=== PATIENT | male | born 1990 | race African-American/Black ===

== ENCOUNTER 2017-07-15 17:26 | Emergency (ER) | payer SELFPAY ==
[~2017-07-15] VITALS: Ht 195.6 cm; Wt 82.0 kg
[2017-07-15] MEDS ORDERED: SODIUM CHLORIDE 0.9% 1,000 ML IV ONE (18:08)
[2017-07-15] MEDS ORDERED: KETOROLAC 30MG/ML VIAL IV STA (18:08)
[2017-07-15] MEDS ORDERED: ONDANSETRON HCL 4MG/2ML VIAL IV STA (18:08)
[2017-07-15] MEDS ORDERED: FAMOTIDINE 20MG/2ML VIAL IV STA (18:08)
[2017-07-15] MEDS ORDERED: ACETAMINOPHEN 500MG TABLET PO ONE (18:15)
[2017-07-15 18:44] LABS: BASOPHILS % 0.4 % (0.0-2.0); HEMATOCRIT. 43.7 % (42.0-52.0); HEMOGLOBIN. 14.9 g/dL (14.0-18.0); LYMPHOCYTES % 15.5 % (20.0-50.0); MEAN CORPUSCULAR HEMOGLOBIN 28.3 pg (28.0-32.0); MEAN CORPUSCULAR VOLUME 82.8 fL (80.0-94.0); MEAN PLATELET VOLUME 8.6 fl (7.4-10.4); NEUTROPHILS % 73.1 % (40.0-76.0); PLATELET 139 x1000/uL (130-400); RED BLOOD CELL COUNT 5.27 mill/uL (4.7-6.1); RED CELL DISTRIBUTION WIDTH 12.8 % (11.6-14.6)
[2017-07-15 18:47] LABS: CHLORIDE 98 mEq/L (98-107); INR 1.3; PROTHROMBIN TIME 13.1 sec (9.4-11.6)
[2017-07-15 18:53] LABS: CARBON DIOXIDE 29 mEq/L (21-32)
[2017-07-15 18:53] LABS: CLARITY URINE CLEAR (CLEAR); COLOR URINE DARK YELLOW (YELLOW); KETONES URINE 2+ (NEGATIVE); LEUKOCYTE ESTERASE URINE 2+ (NEGATIVE); NITRITE URINE NEGATIVE (NEGATIVE); OCCULT BLOOD URINE NEGATIVE (NEGATIVE); PH URINE >=9.0 (4.5-8.0); PROTEIN URINE 1+ (NEGATIVE); SPECIFIC GRAVITY URINE 1.029 (1.005-1.030)
[2017-07-15 21:00] LABS: *AMPHETAMINES SCREEN URINE NEGATIVE (NEGATIVE); *BARBITURATES SCREEN URINE NEGATIVE (NEGATIVE); *BENZODIAZEPINES SCREEN URINE NEGATIVE (NEGATIVE); *COCAINE SCREEN URINE NEGATIVE (NEGATIVE); CANNABINOID URINE SCREEN PRESUMTIVE POSITIVE (NEGATIVE); METHADONE URINE SCREEN NEGATIVE (NEGATIVE); OPIATES URINE SCREEN NEGATIVE (NEGATIVE); PHENCYCLIDINE URINE SCREEN NEGATIVE (NEGATIVE)
[2017-07-15] MEDS ORDERED: AZITHROMYCIN 500 MG TABLET PO ONE (21:00)
[2017-07-15] MEDS ORDERED: CEFTRIAXONE SODIUM 250 MG/VIAL IM ONE (21:00)
[2017-07-15] MEDS ORDERED: LIDOCAINE HCL 1% 20ML VIAL (Pyxis) INJ INFIL ONE (21:00)
[2017-07-15 23:15] VITALS: BP 101/60
== END 2017-07-15 23:15 | disposition home or self-care (01) ==
LOC: ER 17:42
DX: N39.0 Urinary tract infection, site not specified (principal)
CPT/HCPCS: 36415; 80053; 80305; 81001; 83690; 85025; 85610; 96372; 96374; 96375; 99284; J0696; J1885; J2405; J3490; J7030; Z7610

== ENCOUNTER 2021-10-11 16:10 | Emergency (ER) | payer MEDICAID ==
[~2021-10-11] VITALS: Ht 195.6 cm; Wt 82.0 kg
[2021-10-11 16:17] VITALS: BP 123/75
[2021-10-11] MEDS ORDERED: CEPH500C2 MT (17:19)
[2021-10-11] MEDS ORDERED: IBUP-2028 MT (17:19)
[2021-10-11] MEDS ORDERED: SULF1TAB48 MT (17:19)
== END 2021-10-11 17:43 | disposition home or self-care (01) ==
LOC: ER 16:10
DX: L02.211 Cutaneous abscess of abdominal wall (principal)
CPT/HCPCS: 99283